=== PATIENT | female | born 1970 | race Caucasian/White ===

== ENCOUNTER 2024-03-21 18:02 | Emergency (ER) | payer OTHER ==
[~2024-03-21] VITALS: Ht 170.2 cm; Wt 90.7 kg
[~2024-03-21 18:02] MED LIST changes: -NITR100CA PO
[2024-03-21 19:28] LABS: Source, Urine Clean Catch
[2024-03-21 19:44] LABS: Base Excess Venous -2.7 mmol/L; PCO2 Venous 31.7 mmHg (38-42); pH Blood Venous 7.44 (7.34-7.37)
[2024-03-21 19:52] LABS: Appearance, Urine Cloudy (Clear); Bilirubin, Urine Neg (Neg); Blood, Urine 3+ (Neg); Color, Urine Yellow (P-Yellow); Glucose Qualitative, Urine Neg (Neg); Ketones, Urine Neg (Neg); Leukocyte Esterase, Urine 3+ (Neg); Nitrite, Urine Neg (Neg); Protein, Urine 2+ (Neg); Urobilinogen, Urine 1+ (Normal)
[2024-03-21 19:58] LABS: White Blood Cells, Urine TNTC /hpf (0-5)
[2024-03-21 19:59] LABS: Bacteria Many /hpf; Mucus Light (0-Heavy); Squamous Epithelial Cells Few /hpf (Few)
[2024-03-21] MEDS ORDERED: Ondansetron HCl 2 MG / ML 2ML Vial IV ONE (22:15)
[2024-03-21] MEDS ORDERED: Acetaminophen 500 MG Tab ONE (23:00)
[2024-03-24] MEDS ORDERED: NITR100CA PO (10:32)
[2024-03-24] MEDS ORDERED: ONDA4ODT MM (10:32)
== END 2024-03-21 23:50 | disposition home or self-care (01) ==
LOC: ER 18:02
PROVIDERS: Student in an Organized Health Care Education/Training Program
DX: R11.2 Nausea with vomiting, unspecified (principal); R19.7 Diarrhea, unspecified; E87.3 Alkalosis; E87.29 Other acidosis; R82.998 Other abnormal findings in urine
CPT/HCPCS: 80053; 81001; 82803; 83605; 83690; 85025; 87086; 96374; 99284-25; A9270; J2405

== ENCOUNTER → 2024-03-21 | Outpatient (CLI) | payer OTHER ==
[~2024-03-21] MED LIST: CEPH500 PO; NITR100CA PO; ONDA4ODT MM
[2024-03-21 14:33] LABS: BASOPHILS ABSOLUTE AUTO 0.07 K/mm3 (0.00-0.23); BASOPHILS PERCENT AUTO 1 % (0-2); EOSINOPHILS ABSOLUTE AUTO 0.01 K/mm3 (0.00-0.68); EOSINOPHILS PERCENT AUTO 0 % (0-6); Hematocrit 48.2 % (33.0-51.0); Hemoglobin 16.3 g/dL (11.5-16.0); IMMATURE GRAN ABSOLUTE AUTO 0.01 K/mm3 (0.00-0.10); IMMATURE GRAN PERCENT AUTO 0 % (0-1); LYMPHOCYTES ABSOLUTE AUTO 1.51 K/mm3 (0.84-5.20); LYMPHOCYTES PERCENT AUTO 22 % (21-46); MONOCYTES ABSOLUTE AUTO 0.43 K/mm3 (0.16-1.47); MONOCYTES PERCENT AUTO 6 % (4-13); Mean Corpuscular HGB 32.8 pg (26.0-34.0); Mean Corpuscular HGB Conc 33.8 g/dL (31.5-36.5); Mean Corpuscular Volume 97 fL (80-100); Mean Platelet Volume 9.8 fL (9.1-12.4); NEUTROPHILS ABSOLUTE AUTO 4.94 K/mm3 (1.96-9.15); NEUTROPHILS PERCENT AUTO 71 % (41-73); Platelet Count 235 K/mm3 (150-400); RDW Coefficient Variation 13.6 % (11.7-14.2); Red Blood Cell Count 4.97 M/mm3 (3.80-5.20); White Blood Cell Count 6.97 K/mm3 (4.00-11.30)
[2024-03-21 14:46] LABS: Albumin, Blood 3.8 g/dL (3.4-5.0); Albumin/Globulin Ratio 0.9 (0.8-1.8); Bilirubin, Total 0.5 mg/dL (0.1-1.0); Bun/Creatinine Ratio 11.4 (12.0-20.0); Calcium, Blood 9.2 mg/dL (8.5-10.1); Creatinine, Blood 0.88 mg/dL (0.40-1.00); Globulin, Blood 4.2 g/dL (2.2-4.0); Potassium, Blood 2.9 mmol/L (3.5-5.5)
== END | disposition home or self-care (01) ==
LOC: LAB 14:22 → LAB SHORT 14:22
PROVIDERS: Physician Assistant
DX: E87.29 Other acidosis (principal); R11.2 Nausea with vomiting, unspecified; R82.998 Other abnormal findings in urine
CPT/HCPCS: 80053; 83605; 83690; 85025; 87086

== ENCOUNTER 2024-04-21 13:16 | Emergency (ER) | payer OTHER ==
[~2024-04-21] VITALS: Ht 170.2 cm; Wt 90.7 kg
[~2024-04-21 13:16] MED LIST changes: +NITR100CA PO
[2024-04-21] MEDS ORDERED: Thiamine HCl 100 MG in NS 50 ML IV ONE (13:35)
[2024-04-21] MEDS ORDERED: Folic Acid 1 MG TAB PO ONE (13:35)
[2024-04-21] MEDS ORDERED: LORazepam 2 MG/ML 1ML Injection IV ONE (13:40)
[2024-04-21] MEDS ORDERED: Ondansetron HCl 2 MG / ML 2ML Vial IV ONE (13:40)
[2024-04-21 14:00] LABS: BASOPHILS ABSOLUTE AUTO 0.08 K/mm3 (0.00-0.23); BASOPHILS PERCENT AUTO 1 % (0-2); EOSINOPHILS ABSOLUTE AUTO 0.01 K/mm3 (0.00-0.68); EOSINOPHILS PERCENT AUTO 0 % (0-6); Hematocrit 45.5 % (33.0-51.0); Hemoglobin 15.9 g/dL (11.5-16.0); IMMATURE GRAN ABSOLUTE AUTO 0.05 K/mm3 (0.00-0.10); IMMATURE GRAN PERCENT AUTO 0 % (0-1); LYMPHOCYTES ABSOLUTE AUTO 1.64 K/mm3 (0.84-5.20); LYMPHOCYTES PERCENT AUTO 13 % (21-46); MONOCYTES ABSOLUTE AUTO 0.81 K/mm3 (0.16-1.47); MONOCYTES PERCENT AUTO 6 % (4-13); Mean Corpuscular HGB 32.9 pg (26.0-34.0); Mean Corpuscular HGB Conc 34.9 g/dL (31.5-36.5); Mean Corpuscular Volume 94 fL (80-100); Mean Platelet Volume 10.6 fL (9.1-12.4); NEUTROPHILS PERCENT AUTO 80 % (41-73); Platelet Count 248 K/mm3 (150-400); RDW Coefficient Variation 13.6 % (11.7-14.2); RDW Standard Deviation 46.5 fL (35.1-46.3); Red Blood Cell Count 4.83 M/mm3 (3.80-5.20); White Blood Cell Count 13.09 K/mm3 (4.00-11.30)
[2024-04-21 14:21] LABS: Albumin, Blood 3.4 g/dL (3.4-5.0); Albumin/Globulin Ratio 0.9 (0.8-1.8); Bilirubin, Total 1.4 mg/dL (0.1-1.0); Bun/Creatinine Ratio 8.4 (12.0-20.0); Calcium, Blood 8.4 mg/dL (8.5-10.1); Creatinine, Blood 1.43 mg/dL (0.40-1.00); Globulin, Blood 3.6 g/dL (2.2-4.0); Magnesium, Blood 1.7 mg/dL (1.6-2.4); Potassium, Blood 3.4 mmol/L (3.5-5.5)
[2024-04-21] MEDS ORDERED: Gabapentin 300 MG Cap PO ONE (14:55)
[2024-04-21] MEDS ORDERED: Naltrexone HCl 50 MG Tab PO ONE (15:00)
[2024-04-21] MEDS ORDERED: XARELTO20 MG PO (15:04)
[2024-04-21] MEDS ORDERED: HYDCHL25 PO (15:05)
[2024-04-21] MEDS ORDERED: LOSA25 PO (15:05)
[2024-04-21] MEDS ORDERED: CITALOPRAM HBR10 MG PO (15:05)
[2024-04-21] MEDS ORDERED: ONDA4ODT MM (15:33)
[2024-04-21] MEDS ORDERED: Neurontin 300300 MG PO (15:33)
[2024-04-21] MEDS ORDERED: Naltrexone HCl50 MG PO (15:33)
== END 2024-04-21 16:08 | disposition home or self-care (01) ==
LOC: ER 13:16
PROVIDERS: Physician Assistant
DX: F10.939 Alcohol use, unspecified with withdrawal, unspecified (principal); R11.2 Nausea with vomiting, unspecified
CPT/HCPCS: 80053; 83690; 83735; 85025; 93005; 93010; 96365; 96375; 99285-25; A9270; J2060; J2405; J3411

== ENCOUNTER 2024-05-07 08:36 | Emergency (ER) | payer OTHER ==
[~2024-05-07] VITALS: Ht 170.2 cm; Wt 90.7 kg
[~2024-05-07 08:36] MED LIST changes: +CITALOPRAM HBR10 MG PO; +HYDCHL25 PO; +LOSA25 PO; +Naltrexone HCl50 MG PO; +Neurontin 300300 MG PO; +XARELTO20 MG PO
[2024-05-07] MEDS ORDERED: XARELTO20 MG PO (10:10)
[2024-05-07] MEDS ORDERED: QUETIAPINE FUM10011 PO (10:11)
[2024-05-07] MEDS ORDERED: FAMO20 PO (10:11)
[2024-05-08] MEDS ORDERED: Rivaroxaban 10 MG Tab PO SCH (09:00)
== END 2024-05-07 10:40 | disposition home or self-care (01) ==
LOC: ER 08:36
DX: R60.0 Localized edema (principal); I10 Essential (primary) hypertension; Z79.899 Other long term (current) drug therapy
CPT/HCPCS: 93971; 99283-25

== ENCOUNTER 2024-06-13 10:31 | Emergency (ER) | payer OTHER ==
[~2024-06-13] VITALS: Ht 170.2 cm; Wt 97.5 kg
[~2024-06-13 10:31] MED LIST changes: +FAMO20 PO; +QUETIAPINE FUM10011 PO
== END 2024-06-13 11:39 | disposition home or self-care (01) ==
LOC: ER 10:31
DX: S46.911A Strain of unspecified muscle, fascia and tendon at shoulder and upper arm level, right arm, initial encounter (principal); I10 Essential (primary) hypertension; W10.9XXA Fall (on) (from) unspecified stairs and steps, initial encounter; Z79.899 Other long term (current) drug therapy
CPT/HCPCS: 99282

== ENCOUNTER 2024-07-27 11:29 | Inpatient (IN) | payer OTHER ==
[~2024-07-27] VITALS: Ht 177.8 cm; Wt 98.5 kg
[2024-07-27 12:28] LABS: BASOPHILS ABSOLUTE AUTO 0.07 K/mm3 (0.00-0.23); BASOPHILS PERCENT AUTO 1 % (0-2); EOSINOPHILS ABSOLUTE AUTO 0.12 K/mm3 (0.00-0.68); EOSINOPHILS PERCENT AUTO 1 % (0-6); Hematocrit 38.9 % (33.0-51.0); Hemoglobin 12.6 g/dL (11.5-16.0); IMMATURE GRAN ABSOLUTE AUTO 0.03 K/mm3 (0.00-0.10); IMMATURE GRAN PERCENT AUTO 0 % (0-1); LYMPHOCYTES ABSOLUTE AUTO 1.31 K/mm3 (0.84-5.20); LYMPHOCYTES PERCENT AUTO 12 % (21-46); MONOCYTES PERCENT AUTO 5 % (4-13); Mean Corpuscular HGB 33.4 pg (26.0-34.0); Mean Corpuscular HGB Conc 32.4 g/dL (31.5-36.5); Mean Corpuscular Volume 103 fL (80-100); NEUTROPHILS PERCENT AUTO 82 % (41-73); Platelet Count 269 K/mm3 (150-400); RDW Coefficient Variation 14.2 % (11.7-14.2); RDW Standard Deviation 53.6 fL (35.1-46.3); Red Blood Cell Count 3.77 M/mm3 (3.80-5.20); White Blood Cell Count 11.03 K/mm3 (4.00-11.30)
[2024-07-27 13:01] LABS: Albumin, Blood 3.4 g/dL (3.4-5.0); Bilirubin, Total 0.3 mg/dL (0.1-1.0); Bun/Creatinine Ratio 18.4 (12.0-20.0); Calcium, Blood 8.6 mg/dL (8.5-10.1); Creatinine, Blood 0.87 mg/dL (0.40-1.00); Globulin, Blood 3.3 g/dL (2.2-4.0); Potassium, Blood 4.6 mmol/L (3.5-5.5); Total Protein, Blood 6.7 g/dL (6.4-8.2)
[2024-07-27] MEDS ORDERED: HYDROmorphone HCl/Pf 1MG SYR IV ONE ×2 (14:30→17:15)
[2024-07-27] MEDS ORDERED: Acetaminophen 500 MG Tab PO ONE (15:40)
[2024-07-27] MEDS ORDERED: OxyCODONE HCL 5 MG TAB PO ONE (15:40)
[2024-07-27] MEDS ORDERED: Ondansetron HCl 2 MG / ML 2ML Vial IV ONE (17:15)
[2024-07-27] MEDS ORDERED: NS 1,000 ML IV SCH ×2 (17:15→17:30)
[2024-07-27] MEDS ORDERED: Ondansetron HCl 2 MG / ML 2ML Vial IV PRN (17:25)
[2024-07-27] MEDS ORDERED: Acetaminophen 325 MG TABLET PO PRN (17:30)
[2024-07-27] MEDS ORDERED: FLU VACC TS2024-25(6MOS UP)/PF 45 MCG/0.5 ML SYRINGE IM SCH (17:30)
[2024-07-27] MEDS ORDERED: FentaNYL Citrate 50 MCG/ML 2 ML Injection IV PRN (17:30)
[2024-07-27 18:48] VITALS: BP 138/77
[2024-07-27] MEDS ORDERED: Vitamin B Comple1 EA PO (19:02)
[2024-07-27 19:36] VITALS: BP 121/81
[2024-07-27] MEDS ORDERED: HYDROmorphone HCl 2 MG Tab PO PRN (20:20)
[2024-07-27 20:53] LABS: Hematocrit 29.6 % (33.0-51.0); Hemoglobin 9.7 g/dL (11.5-16.0)
[2024-07-27 21:09] LABS: International Normalized Ratio 1.04; Prothrombin Time Results 11.1 Sec (9.7-11.5)
[2024-07-27 23:54] LABS: Hematocrit 25.7 % (33.0-51.0); Hemoglobin 8.2 g/dL (11.5-16.0)
[2024-07-28 04:28] VITALS: BP 128/81
[2024-07-28 04:31] LABS: BASOPHILS ABSOLUTE AUTO 0.04 K/mm3 (0.00-0.23); BASOPHILS PERCENT AUTO 1 % (0-2); EOSINOPHILS ABSOLUTE AUTO 0.19 K/mm3 (0.00-0.68); EOSINOPHILS PERCENT AUTO 3 % (0-6); Hematocrit 27.4 % (33.0-51.0); Hemoglobin 8.8 g/dL (11.5-16.0); IMMATURE GRAN ABSOLUTE AUTO 0.03 K/mm3 (0.00-0.10); IMMATURE GRAN PERCENT AUTO 0 % (0-1); LYMPHOCYTES ABSOLUTE AUTO 1.89 K/mm3 (0.84-5.20); LYMPHOCYTES PERCENT AUTO 26 % (21-46); MONOCYTES ABSOLUTE AUTO 0.54 K/mm3 (0.16-1.47); MONOCYTES PERCENT AUTO 8 % (4-13); Mean Corpuscular HGB 33.5 pg (26.0-34.0); Mean Corpuscular HGB Conc 32.1 g/dL (31.5-36.5); Mean Corpuscular Volume 104 fL (80-100); Mean Platelet Volume 10.1 fL (9.1-12.4); NEUTROPHILS ABSOLUTE AUTO 4.47 K/mm3 (1.96-9.15); NEUTROPHILS PERCENT AUTO 62 % (41-73); Platelet Count 188 K/mm3 (150-400); RDW Coefficient Variation 14.3 % (11.7-14.2); RDW Standard Deviation 53.9 fL (35.1-46.3); Red Blood Cell Count 2.63 M/mm3 (3.80-5.20); White Blood Cell Count 7.16 K/mm3 (4.00-11.30)
[2024-07-28 04:50] LABS: Albumin, Blood 2.7 g/dL (3.4-5.0); Bilirubin, Total 0.4 mg/dL (0.1-1.0); Bun/Creatinine Ratio 18.8 (12.0-20.0); Calcium, Blood 8.2 mg/dL (8.5-10.1); Creatinine, Blood 0.96 mg/dL (0.40-1.00); Globulin, Blood 2.6 g/dL (2.2-4.0); Potassium, Blood 4.1 mmol/L (3.5-5.5); Total Protein, Blood 5.3 g/dL (6.4-8.2)
--- NOTE | 2024-07-28 04:58 | NUR ---
LICENSED PLUMBER SUMMARY PT MONITORED VERY CLOSELY OVERNIGHT. SEE VITALS SIGNS AND SERIAL H/H'S. HER 0400 HGB ACTUALLY INCREASED A BIT. PT DENIES DIZZINESS, CP, WEAKNESS, OR SOB. PICTURE TAKEN OF HER L BUTTOCK HEMATOMA. SEE PHOTO IN PAPER CHART. SHE WAS VERY PAINFUL ON ADMISSION BUT HER PAIN WAS WELL CONTROLLED WITH AVAILABLE MEDICATIONS, SEE EMAR. KEPT AN ICE PACK ON HER L BUTTOCK THROUGHOUT THE NIGHT AND ENCOURAGED HER TO KEEP HER WEIGHT ON HER L BUTTOCK TO HELP SLOW/STOP THE BLEEDING. PT HAS BEEN ON IVF AT 75 ALL NIGHT, VOIDING WELL.
[2024-07-28 08:36] VITALS: BP 116/75
[2024-07-28] MEDS ORDERED: Famotidine 20 MG Tab PO SCH (09:00)
[2024-07-28] MEDS ORDERED: Citalopram Hydrobromide 20 MG Tab PO SCH (09:00)
[2024-07-28 12:33] LABS: Hematocrit 27.3 % (33.0-51.0); Hemoglobin 8.7 g/dL (11.5-16.0)
[2024-07-28 14:50] VITALS: BP 122/71
[2024-07-28 19:15] VITALS: BP 105/58
[2024-07-28] MEDS ORDERED: HYDROmorphone HCl 2 MG Tab PO PRN (20:15)
[2024-07-28] MEDS ORDERED: QUEtiapine Fumarate 200 MG Tab PO SCH (21:00)
[2024-07-29] VITALS (9 sets, daily range): BP systolic 89–120; BP diastolic 54–70
[2024-07-29 05:37] LABS: BASOPHILS ABSOLUTE AUTO 0.05 K/mm3 (0.00-0.23); BASOPHILS PERCENT AUTO 1 % (0-2); EOSINOPHILS ABSOLUTE AUTO 0.17 K/mm3 (0.00-0.68); EOSINOPHILS PERCENT AUTO 3 % (0-6); Hematocrit 23.2 % (33.0-51.0); Hemoglobin 7.5 g/dL (11.5-16.0); IMMATURE GRAN ABSOLUTE AUTO 0.02 K/mm3 (0.00-0.10); IMMATURE GRAN PERCENT AUTO 0 % (0-1); LYMPHOCYTES ABSOLUTE AUTO 2.05 K/mm3 (0.84-5.20); LYMPHOCYTES PERCENT AUTO 36 % (21-46); MONOCYTES ABSOLUTE AUTO 0.44 K/mm3 (0.16-1.47); MONOCYTES PERCENT AUTO 8 % (4-13); Mean Corpuscular HGB 32.9 pg (26.0-34.0); Mean Corpuscular HGB Conc 32.3 g/dL (31.5-36.5); Mean Corpuscular Volume 102 fL (80-100); Mean Platelet Volume 10.6 fL (9.1-12.4); NEUTROPHILS ABSOLUTE AUTO 3.01 K/mm3 (1.96-9.15); NEUTROPHILS PERCENT AUTO 52 % (41-73); Platelet Count 171 K/mm3 (150-400); RDW Coefficient Variation 14.3 % (11.7-14.2); RDW Standard Deviation 52.1 fL (35.1-46.3); Red Blood Cell Count 2.28 M/mm3 (3.80-5.20); White Blood Cell Count 5.74 K/mm3 (4.00-11.30)
[2024-07-29 06:06] LABS: Bun/Creatinine Ratio 22.4 (12.0-20.0); Calcium, Blood 8.5 mg/dL (8.5-10.1); Creatinine, Blood 0.8 mg/dL (0.40-1.00); Potassium, Blood 3.8 mmol/L (3.5-5.5)
[2024-07-29] MEDS ORDERED: NS 500 ML IV SCH (13:15)
--- NOTE | 2024-07-29 14:59 | NUR ---
1U OF PRBC ORDER FOR PATIENT. PATIENT GIVEN CONSENT AND SIGNED CONSENT. BLOOD VERFIIED BY THIS NURSE AND CYNDI MANZANARES. PATIENT ADVISED OF SIGNS AND SYMTOMS OF ADVERSE REACTION AND PATIENT ADVISED TO CONTACT THIS NURSE FOR ANY ISSUES. PRBC INFUSING AT 200ML/HR. PATIENT TOLERATING BLOOD WITHOUT ISSUES AND VOICED NO COMPLAINTS. PATIENT SITTING UP IN BED.
--- NOTE | 2024-07-29 18:23 | NUR ---
PATIENT A/O X 4. PATIENT HAS HAD COMPLAINTS OF LEFT HIP PAIN, PATIENT HAS HAD COVERAGE WITH PAIN MEDICATION AND HAS A HEATING PAD ON LEFT WHICH SHE STATES HAS NOT HELPED. PATIENT HAS BEEN UP IN BED AND CHAIR ALL DAY. PATIENT WALKED THE UNIT TODAY WITH NO ISSUES WITH ABMULATION. PATIENT REQUIRED ONE UNIT OF PRBC WHICH INFUSED WITH NO SIGNS OR SYMTOMS OF REACTION. PATIENT HAS BRUSING NOTED ON LEFT HIP FROM FALL DOWN THE STAIRS AT HOME. PATIENT IV ON RIGHT FOREARM HAS BEEN DC'D DUE TO NONE PATIENT IV. PATIENT UP WITH BED WITH CALL LIGHT NO FURTHER CONCERNS AT THIS TIME.
[2024-07-30 03:22] VITALS: BP 93/61
[2024-07-30 05:05] LABS: BASOPHILS ABSOLUTE AUTO 0.05 K/mm3 (0.00-0.23); BASOPHILS PERCENT AUTO 1 % (0-2); EOSINOPHILS ABSOLUTE AUTO 0.19 K/mm3 (0.00-0.68); EOSINOPHILS PERCENT AUTO 3 % (0-6); Hematocrit 26.4 % (33.0-51.0); Hemoglobin 8.6 g/dL (11.5-16.0); IMMATURE GRAN ABSOLUTE AUTO 0.03 K/mm3 (0.00-0.10); IMMATURE GRAN PERCENT AUTO 1 % (0-1); LYMPHOCYTES ABSOLUTE AUTO 2.14 K/mm3 (0.84-5.20); LYMPHOCYTES PERCENT AUTO 34 % (21-46); MONOCYTES ABSOLUTE AUTO 0.42 K/mm3 (0.16-1.47); MONOCYTES PERCENT AUTO 7 % (4-13); Mean Corpuscular HGB Conc 32.6 g/dL (31.5-36.5); Mean Corpuscular Volume 98 fL (80-100); Mean Platelet Volume 10.6 fL (9.1-12.4); NEUTROPHILS ABSOLUTE AUTO 3.49 K/mm3 (1.96-9.15); NEUTROPHILS PERCENT AUTO 55 % (41-73); Platelet Count 201 K/mm3 (150-400); RDW Coefficient Variation 16.9 % (11.7-14.2); RDW Standard Deviation 59.9 fL (35.1-46.3); Red Blood Cell Count 2.69 M/mm3 (3.80-5.20); White Blood Cell Count 6.32 K/mm3 (4.00-11.30)
[2024-07-30 05:31] LABS: Albumin, Blood 2.8 g/dL (3.4-5.0); Albumin/Globulin Ratio 0.9 (0.8-1.8); Bilirubin, Total 0.3 mg/dL (0.1-1.0); Bun/Creatinine Ratio 23.2 (12.0-20.0); Calcium, Blood 8.8 mg/dL (8.5-10.1); Creatinine, Blood 0.95 mg/dL (0.40-1.00); Potassium, Blood 4.1 mmol/L (3.5-5.5); Total Protein, Blood 5.8 g/dL (6.4-8.2)
[2024-07-30 07:32] VITALS: BP 108/57
[2024-07-30] MEDS ORDERED: OXYC5 PO (14:00)
--- NOTE | 2024-07-30 14:20 | NUR ---
REVIEWED DISHCARGE INSTRUCTIONS WITH PATIENT. PATIENT GIVEN HARD SCRIPT TO FILL OXYCODONE AT LOCAL PHARMACY. PATIENT FAMILY TAKING PATIENT HOME VIA POV. PATIENT VOICED NO CONCERNS AND VERBALIZED UNDERSTANDING WITH ALL INFORMATION GIVEN.
--- NOTE | 2024-07-30 14:23 | NUR ---
PATIENT REQUESTED VISIT FROM THERAPY DOG. CONSULT PLACED AND THERAPY DOG CAME TO VISIT PATIENT IN ROOM.
--- NOTE | 2024-07-30 19:18 | NUR ---
LATE ENTRY, PT DISCHARGED HOME. DISCHARGE INSTRUCTIONS DISCUSSED WITH PT. NO QUESTIONS OR CONCERNS AT TIME OF DISCHARGE.
== END 2024-07-30 14:21 | disposition home or self-care (01) | DRG 605 ==
LOC: ER 11:29 → MEDS 17:26 → ENPENDDIS 07-30 13:02 → MEDS 07-30 14:21
PROVIDERS: Internal Medicine; Student in an Organized Health Care Education/Training Program; ADMIT Internal Medicine
PROC: 30233N1 Transfusion of Nonautologous Red Blood Cells into Peripheral Vein, Percutaneous Approach (ICD-10-PCS; principal; 2024-07-28)
DX: S30.0XXA Contusion of lower back and pelvis, initial encounter (principal); D62 Acute posthemorrhagic anemia; I10 Essential (primary) hypertension; K21.9 Gastro-esophageal reflux disease without esophagitis; G62.9 Polyneuropathy, unspecified; F10.20 Alcohol dependence, uncomplicated; F41.8 Other specified anxiety disorders; E66.9 Obesity, unspecified; G47.00 Insomnia, unspecified; F17.210 Nicotine dependence, cigarettes, uncomplicated; Z71.6 Tobacco abuse counseling; Z79.01 Long term (current) use of anticoagulants; Z79.899 Other long term (current) drug therapy; Z86.718 Personal history of other venous thrombosis and embolism; Z86.711 Personal history of pulmonary embolism; W01.0XXA Fall on same level from slipping, tripping and stumbling without subsequent striking against object, initial encounter
CPT/HCPCS: 36415; 36430; 72193; 80048; 80053; 83880; 85014; 85018; 85025; 85610; 86850; 86900; 86901; 86923; 96361; 96374-59; 96375; 96375-59; 96376; 96376-59; 99284-25; A9270; G0378; J1171; J2405; J3010; J7030; J7040; P9016; Q9967

== ENCOUNTER 2024-08-15 21:07 | Emergency (ER) | payer OTHER ==
[~2024-08-15] VITALS: Ht 170.2 cm; Wt 90.7 kg
[~2024-08-15 21:07] MED LIST changes: +OXYC5 PO; +Vitamin B Comple1 EA PO
[2024-08-15 22:03] LABS: BASOPHILS ABSOLUTE AUTO 0.06 K/mm3 (0.00-0.23); BASOPHILS PERCENT AUTO 1 % (0-2); EOSINOPHILS ABSOLUTE AUTO 0.08 K/mm3 (0.00-0.68); EOSINOPHILS PERCENT AUTO 1 % (0-6); Hematocrit 36.4 % (33.0-51.0); Hemoglobin 12.2 g/dL (11.5-16.0); IMMATURE GRAN ABSOLUTE AUTO 0.03 K/mm3 (0.00-0.10); IMMATURE GRAN PERCENT AUTO 0 % (0-1); LYMPHOCYTES ABSOLUTE AUTO 2.15 K/mm3 (0.84-5.20); LYMPHOCYTES PERCENT AUTO 24 % (21-46); MONOCYTES ABSOLUTE AUTO 0.73 K/mm3 (0.16-1.47); MONOCYTES PERCENT AUTO 8 % (4-13); Mean Corpuscular HGB 33.5 pg (26.0-34.0); Mean Corpuscular HGB Conc 33.5 g/dL (31.5-36.5); Mean Corpuscular Volume 100 fL (80-100); Mean Platelet Volume 9.7 fL (9.1-12.4); NEUTROPHILS ABSOLUTE AUTO 5.94 K/mm3 (1.96-9.15); NEUTROPHILS PERCENT AUTO 66 % (41-73); Platelet Count 303 K/mm3 (150-400); RDW Standard Deviation 61.6 fL (35.1-46.3); Red Blood Cell Count 3.64 M/mm3 (3.80-5.20); White Blood Cell Count 8.99 K/mm3 (4.00-11.30)
[2024-08-15 22:23] LABS: Albumin, Blood 3.9 g/dL (3.4-5.0); Albumin/Globulin Ratio 1.1 (0.8-1.8); Bilirubin, Total 0.8 mg/dL (0.1-1.0); Bun/Creatinine Ratio 13.9 (12.0-20.0); Calcium, Blood 9.5 mg/dL (8.5-10.1); Creatinine, Blood 0.72 mg/dL (0.40-1.00); Globulin, Blood 3.7 g/dL (2.2-4.0); Potassium, Blood 3.4 mmol/L (3.5-5.5); Total Protein, Blood 7.6 g/dL (6.4-8.2)
[2024-08-15] MEDS ORDERED: RX Prepack 2 Tabs Ondansetron ODT 4MG UD ONE (23:55)
== END 2024-08-15 23:59 | disposition home or self-care (01) ==
LOC: ER 21:07
PROVIDERS: Physician Assistant
DX: S30.0XXA Contusion of lower back and pelvis, initial encounter (principal); R11.2 Nausea with vomiting, unspecified; W19.XXXA Unspecified fall, initial encounter; Z79.899 Other long term (current) drug therapy
CPT/HCPCS: 72193; 80053; 85025; 99284-25; Q9967

== ENCOUNTER → 2025-05-10 | Outpatient (CLI) | payer OTHER | LOC: LAB SHORT 13:14 → LAB 13:14 | DX: R35.0 Frequency of micturition (principal) | CPT/HCPCS: 87086 ==

== ENCOUNTER → 2025-05-23 | Outpatient (CLI) | payer OTHER ==
[2025-05-23 16:24] LABS: BASOPHILS ABSOLUTE AUTO 0.06 K/mm3 (0.00-0.23); BASOPHILS PERCENT AUTO 1 % (0-2); EOSINOPHILS ABSOLUTE AUTO 0.27 K/mm3 (0.00-0.68); EOSINOPHILS PERCENT AUTO 4 % (0-6); Hematocrit 44.0 % (33.0-51.0); Hemoglobin 14.4 g/dL (11.5-16.0); IMMATURE GRAN ABSOLUTE AUTO 0.01 K/mm3 (0.00-0.10); IMMATURE GRAN PERCENT AUTO 0 % (0-1); LYMPHOCYTES ABSOLUTE AUTO 2.24 K/mm3 (0.84-5.20); LYMPHOCYTES PERCENT AUTO 34 % (21-46); MONOCYTES ABSOLUTE AUTO 0.40 K/mm3 (0.16-1.47); MONOCYTES PERCENT AUTO 6 % (4-13); Mean Corpuscular HGB Conc 32.7 g/dL (31.5-36.5); Mean Corpuscular Volume 95 fL (80-100); NEUTROPHILS ABSOLUTE AUTO 3.66 K/mm3 (1.96-9.15); NEUTROPHILS PERCENT AUTO 55 % (41-73); NRBC ABSOLUTE 0.00 K/mm3 (0.00-0.02); NRBC Auto 0.0 /100 WBC (0.0-0.2); Platelet Count 271 K/mm3 (150-400); RDW Coefficient Variation 13.1 % (11.7-14.2); RDW Standard Deviation 45.3 fL (35.1-46.3)
[2025-05-23 16:33] LABS: Alanine Aminotransfer (ALT/SGP 32.0 U/L (12-78); Albumin, Blood 4.4 g/dL (3.4-5.0); Albumin/Globulin Ratio 1.3 (0.8-1.8); Anion Gap 13.0 mmol/L (3-11); Aspartate Aminotrans (AST/SGOT 21.0 U/L (12-37); Bilirubin, Total 0.3 mg/dL (0.1-1.0); Blood Urea Nitrogen 19.0 mg/dL (8-24); CO2, Blood 28.0 mmol/L (21-32); Calcium, Blood 9.4 mg/dL (8.5-10.1); Chloride, Blood 103.0 mmol/L (98-108); Creatinine, Blood 1.02 mg/dL (0.40-1.00); Globulin, Blood 3.5 g/dL (2.2-4.0); Glucose, Blood 92.0 mg/dL (70-99); Potassium, Blood 4.4 mmol/L (3.5-5.5); Sodium, Blood 140.0 mmol/L (136-145); Total Protein, Blood 7.9 g/dL (6.4-8.2)
[2025-05-26 06:28] LABS: RHEUMATOID FACTOR <10 IU/mL (0-14)
[2025-05-26 14:16] LABS: ANTI-NUCLEAR AB ANA,IGG ELISA None Detected (None Detected)
== END ==
LOC: LAB 16:15 → LAB SHORT 16:15
PROVIDERS: Emergency Medicine
DX: M16.12 Unilateral primary osteoarthritis, left hip (principal)
CPT/HCPCS: 80053; 85025; 85651; 86038; 86140; 86431

== ENCOUNTER → 2025-07-10 | Outpatient (CLI) | payer OTHER ==
[2025-07-10 17:52] LABS: Source, Urine Clean Catch
[2025-07-10 19:09] LABS: Bilirubin, Urine Neg (Neg); Color, Urine Yellow (P-Yellow); Glucose Qualitative, Urine Neg (Neg); Ketones, Urine Neg (Neg); Leukocyte Esterase, Urine 3+ (Neg); Protein, Urine 2+ (Neg); Specific Gravity, Urine 1.020 (1.003-1.022); Urobilinogen, Urine NORM (Normal)
[2025-07-10 19:18] LABS: White Blood Cells, Urine TNTC /hpf (0-5)
== END ==
LOC: LAB 17:50 → LAB SHORT 17:50
DX: R35.0 Frequency of micturition (principal)
CPT/HCPCS: 81001; 87086